=== PATIENT | male | born 1985 | race Caucasian/White ===

== ENCOUNTER → 2019-07-06 | Outpatient (CLI) | payer OTHER, SELFPAY ==
--- NOTE | 2019-07-06 19:01 | DIREP ---
PROCEDURE:MRI JOINT LOWER EXTREMITY-LT W/O COMPARISON:None. INDICATIONS:M25.562 PAIN IN LEFT KNEE TECHNIQUE:A complete multi-planar MRI was performed. FINDINGS: PATELLOFEMORAL:Normal patellofemoral cartilage. The extensor mechanism is intact. MEDIAL COMPARTMENT MEDIAL MENISCUS:Suspected nondisplaced horizontal tear posterior horn body junction best seen on coronal image 21. HYALINE CARTILAGE:Normal. No visible defect. BONES:Normal. No marrow pathology, fracture, or significant arthropathy. MCL AND MEDIAL CAPSULE:Normal medial collateral ligament and medial capsule. LATERAL COMPARTMENT LATERAL MENISCUS:Normal. No visible tear or significant degeneration. HYALINE CARTILAGE:Normal. No visible defect. BONES:Normal. No marrow pathology, fracture, or significant arthropathy. LCL/POSTEROLAT. COMPLEX:Normal lateral collateral ligament, fascicles, lateral capsule and ligaments. ACL:Normal appearing ligament. PCL:Normal appearing ligament. MENISCOFEMORAL:Normal meniscofemoral ligaments. EFFUSION:None. No synovitis or loose bodies. OTHER:Negative. CONCLUSION:Suspected horizontal tear posterior horn body junction of the medial meniscus. Dictated by: Alferdo Abarca DO on 07/06/2019 at 06:58 PM
== END | disposition home or self-care (01) ==
LOC: RAD 16:10
PROVIDERS: ATTEND Family Medicine
DX: M25.562 Pain in left knee (principal)
CPT/HCPCS: 73721